=== PATIENT | male | born 1970 | race Caucasian/White ===

== ENCOUNTER → 2020-12-15 | Outpatient (CLI) | payer SELFPAY ==
[2020-12-15 15:46] LABS: Appearance,Urine Clear (Clear); Bilirubin,Urine Negative (Negative); Blood,Urine Negative (Negative); Color,Urine Yellow; Glucose,Urine (UA) Negative (Negative); Ketones,Urine Negative (Negative); Leukocyte Esterase,Urine Negative (Negative); Nitrite,Urine Negative (Negative); PH, Urine 5.5 (5.0-8.0); Protein,Urine Negative (Negative); Specific Gravity,Urine 1.022 (1.001-1.035)
[2020-12-15 23:02] LABS: Basophils # (A) 0.06 X 10*3/uL (0.00-0.10); Basophils % (A) 0.8 %; Eosinophils # (A) 0.37 X 10*3/uL (0.04-0.35); Eosinophils % (A) 4.9 %; HCT 46.9 % (39.6-50.0); HGB 14.4 g/dL (13.0-17.0); Lymphocytes # (A) 2.32 X 10*3/uL (0.90-5.00); Lymphocytes % (A) 30.5 %; MCH 25.2 pg (27.0-32.0); MCHC 30.7 g/dL (32.0-37.0); MCV 82.1 fL (80.0-97.0); Mean Platelet Volume 10.9 fL (9.5-12.2); Monocytes # (A) 0.54 X 10*3/uL (0.20-1.00); Monocytes % (A) 7.1 %; Neutrophils % (A) 56.4 %; Platelet Count 267 X 10*3/uL (140-440); RBC 5.71 X 10*6/uL (4.40-5.60); RDW 14.5 % (11.5-14.5); WBC 7.61 X 10*3/uL (4.50-10.00)
[2020-12-16 07:40] LABS: African American GFR (CKD) 82.4 (60.0-200.0); Albumin 4.7 g/dL (3.80-4.90); Albumin/Globulin Ratio 1.52 (1.60-3.17); Anion Gap 17.9 mmol/L (4.00-12.00); Calcium 9.8 mg/dL (8.7-10.3); Carbon Dioxide 14.1 mmol/L (21.6-31.8); Globulin 3.1 g/dL (1.6-3.3); Non-African American GFR(CKD) 71.1 (60.0-200.0); Total Bilirubin 0.3 mg/dL (0.3-1.2); Total Protein 7.8 g/dL (6.2-8.2)
== END | disposition home or self-care (01) ==
LOC: LABWHC1 14:23
PROVIDERS: ATTEND Family Medicine
DX: F11.20 Opioid dependence, uncomplicated (principal)
CPT/HCPCS: 36415; 80053; 81003; 85025; 86780; 87340

== ENCOUNTER 2024-01-27 17:08 | Observation (INO) | payer OTHER ==
[2024-01-27] MEDS ORDERED: ONDANSETRON 4 MG/2 ML VIAL IVP PRN (17:58)
[2024-01-27] MEDS ORDERED: NALOXONE 0.4 MG/ML 1 ML VIAL IV PRN (17:58)
[2024-01-27] MEDS ORDERED: VANCOMYCIN IV PER PHARMACY 1 EACH MISC MISCELLANE PRN (17:59)
--- NOTE | 2024-01-27 18:01 | ED ---
Extremity Problem HPI - General Chief complaint: Extremity Injury, Lower Stated complaint: Chemical blair on both legs Time Seen by Provider: 01/27/24 17:32 Source: patient, RN notes reviewed, old records reviewed Mode of arrival: ambulatory Limitations: no limitations - History of Present Illness Initial comments: This is a 53 male to the ER for evaluation today. Patient presents today for evaluation regards to severe lower extremity pain right lower extremity pain with significantly left lower extremity pain swelling redness history of chemical blair to the legs and currently feels like he has significant amount of pain and swelling and redness with warmth. At times feverish. Patient does get some chills, patient has severe left leg pain patient comes from [facility] where he is going through inpatient evaluation MD Complaint: extremity pain, extremity swelling, joint pain -: days(s) Location: left, lower extremity, bilateral lower extremity History of Same: Yes -: Yes arthralgia Radiation: none Severity scale (1-10): 4 Quality: stabbing Consistency: constant Improves with: nothing Worsens with: nothing Associated Symptoms: denies other symptoms - Related Data Home Medications Medication Instructions Recorded Confirmed Methadone [Dolophine] 70 mg PO DAILY 01/27/24 01/27/24 Mupirocin 2% Oint [Bactroban 2% 1 applic TOPICAL BID PRN 01/27/24 01/27/24 Oint] ondansetron HCL [Ondansetron HCl] 8 mg PO Q6H PRN 01/27/24 01/27/24 Allergies Allergy/AdvReac Type Severity Reaction Status Date / Time carbamazepine [From Tegretol] Allergy Anaphylaxis Verified 01/27/24 18:00 phenytoin [From Dilantin] Allergy Anaphylaxis Verified 01/27/24 18:00 Review of Systems ROS Statement: Those systems with pertinent positive or pertinent negative responses have been documented in the HPI. ROS Other: All systems not noted in ROS Statement are negative. Past Medical History Past Medical History: No Reported History History of Any Multi-Drug Resistant Organisms: None Reported Past Surgical History: Appendectomy Past Psychological History: No Psychological Hx Reported Smoking Status: Current every day smoker Past Alcohol Use History: Rare Past Drug Use History: Marijuana General Exam Limitations: no limitations General appearance: alert, in no apparent distress Head exam: Present: atraumatic, normocephalic, normal inspection Eye exam: Present: normal appearance, PERRL, EOMI. Absent: scleral icterus, conjunctival injection, periorbital swelling ENT exam: Present: normal exam, mucous membranes moist Neck exam: Present: normal inspection. Absent: tenderness, meningismus, lymphadenopathy Respiratory exam: Present: normal lung sounds bilaterally. Absent: respiratory distress, wheezes, rales, rhonchi, stridor Cardiovascular Exam: Present: regular rate, normal rhythm, normal heart sounds. Absent: systolic murmur, diastolic murmur, rubs, gallop, clicks GI/Abdominal exam: Present: soft, normal bowel sounds. Absent: distended, tenderness, guarding, rebound, rigid Extremities exam: Present: normal inspection, full ROM, normal capillary refill. Absent: tenderness, pedal edema, joint swelling, calf tenderness Back exam: Present: normal inspection Neurological exam: Present: alert, oriented X3, CN II-XII intact Psychiatric exam: Present: normal affect, normal mood Skin exam: Present: warm, dry, intact, normal color. Absent: rash Course Vital Signs 01/27/24 01/27/24 17:24 19:42 Temperature 98.0 F Pulse Rate 81 90 Respiratory 18 18 Rate Blood Pressure 99/64 152/104 O2 Sat by Pulse 98 98 Oximetry - Reevaluation(s) Reevaluation #1: 01/27/24 18:24 Medical records reviewed Reevaluation #2: 01/27/24 18:24 Patient symptoms unchanged Reevaluation #3: 01/27/24 18:24 Patient informed of results questions answered Reevaluation #4: Was pt. sent in by a medical professional or institution (, PA, PIPELINES SUPERVISOR, urgent care, hospital, or intermediate...) When possible be specific @ -no Did you speak to anyone other than the patient for history (EMS, parent, family, police, friend...)? What history was obtained from this source @ -no Did you review nursing and triage notes (agree or disagree)? Why? @ -agree Are old charts reviewed (outside hosp., previous admission, EMS record, old EKG, old radiological studies, urgent care reports/EKG's, intermediate records)? Report findings @ -yes Differential Diagnosis (chest pain, altered mental status, abdominal pain women, abdominal pain men, vaginal bleeding, weakness, fever, dyspnea, syncope, headache, dizziness, GI bleed, back pain, seizure, CVA, palpatations, mental health, musculoskeletal)? @ -prior EKG interpreted by me (3pts min.). @ -yes X-rays interpreted by me (1pt min.). @ -yes negative for acute disease CT interpreted by me (1pt min.). @ -no U/S interpreted by me (1pt. min.). @ -no What testing was considered but not performed or refused? (CT, X-rays, U/S, l abs)? Why? @ -none What meds were considered but not given or refused? Why? @ -none Did you discuss the management of the patient with other professionals (professionals i.e. Dr., PA, PIPELINES SUPERVISOR, lab, RT, psych nurse, director social service, cone trucker, teacher, air force senior officer, nurse case management)? Give summary @ -no Was smoking cessation discussed for >3mins.? @ -no Was critical care preformed (if so, how long)? @ -no Were there social determinants of health that impacted care today? How? (Homelessness, low income, unemployed, alcoholism, drug addiction, transportation, low edu. Level, literacy, decrease access to med. care, retirement, rehab)? @ -none Was there de-escalation of care discussed even if they declined (Discuss DNR or withdrawal of care, Hospice)? DNR status @ -no What co-morbidities impacted this encounter? (DM, HTN, Smoking, COPD, CAD, Cancer, CVA, ARF, Chemo, Hep., AIDS, mental health diagnosis, sleep apnea, morbid obesity)? @ -none Was patient admitted / discharged? Hospital course, mention meds given and route, prescriptions, significant lab abnormalities, going to OR and other pertinent info. @ - Undiagnosed new problem with uncertain prognosis? @ -no Drug Therapy requiring intensive monitoring for toxicity (Heparin, Nitro, Insulin, Cardizem)? @ -no Were any procedures done? @ -no Diagnosis/symptom? @ - Acute, or Chronic, or Acute on Chronic? @ -Acute Uncomplicated (without systemic symptoms) or Complicated (systemic symptoms)? @ -Complicated Side effects of treatment? @ -no Exacerbation, Progression, or Severe Exacerbation? @ -exacerbation Poses a threat to life or bodily function? How? (Chest pain, [place], [place], pneumonia, PE, COPD, DKA, ARF, appy, cholecystitis, CVA, Diverticulitis, Homicidal, Suicidal, threat to staff... and all critical care pts) @ -yes - Consultations Consultation #1: Spoke with isael who agrees to admit this patient Medical Decision Making - Medical Decision Making 53 male to ER for evaluation of severe leg pain severe leg swelling and left lower extremity cellulitis. Patient has significant left leg pain and will admit for IV antibiotics for lower extremity cellulitis - Lab Data Result diagrams: 01/27/24 17:16 01/27/24 17:16 Lab Results 01/27/24 01/27/24 01/27/24 Range/Units 17:16 17:16 17:16 WBC 10.3 (3.8-10.6) k/uL RBC 5.36 (4.30-5.90) m/uL Hgb 14.2 (13.0-17.5) gm/dL Hct 45.9 (39.0-53.0) % MCV 85.7 (80.0-100.0) fL MCH 26.4 (25.0-35.0) pg MCHC 30.8 L (31.0-37.0) g/dL RDW 13.5 (11.5-15.5) % Plt Count 208 (150-450) k/uL MPV 7.7 Neutrophils % 64 % Lymphocytes % 24 % Monocytes % 6 % Eosinophils % 4 % Basophils % 1 % Neutrophils # 6.6 (1.3-7.7) k/uL Lymphocytes # 2.5 (1.0-4.8) k/uL Monocytes # 0.6 (0-1.0) k/uL Eosinophils # 0.4 (0-0.7) k/uL Basophils # 0.1 (0-0.2) k/uL D-Dimer 0.24 (<0.60) mg/L FEU Sodium 139 (137-145) mmol/L Potassium 5.1 (3.5-5.1) mmol/L Chloride 105 (98-107) mmol/L Carbon Dioxide 28 (22-30) mmol/L Anion Gap 6 mmol/L BUN 16 (9-20) mg/dL Creatinine 0.79 (0.66-1.25) mg/dL Est GFR (CKD-EPI)AfAm >90 (>60 ml/min/1.73 sqM) Est GFR (CKD-EPI)NonAf >90 (>60 ml/min/1.73 sqM) Glucose 86 (74-99) mg/dL Plasma Lactic Acid Davi (0.7-2.0) mmol/L Calcium 9.0 (8.4-10.2) mg/dL Phosphorus 4.1 (2.5-4.5) mg/dL Magnesium 2.1 (1.6-2.3) mg/dL Total Bilirubin 0.4 (0.2-1.3) mg/dL AST 49 (17-59) U/L ALT 90 H (4-49) U/L Alkaline Phosphatase 79 (38-126) U/L C-Reactive Protein 0.9 (<1.0) mg/dL NT-Pro-B Natriuret Pep 333 pg/mL Total Protein 7.3 (6.3-8.2) g/dL Albumin 4.0 (3.5-5.0) g/dL 01/27/24 Range/Units 17:16 WBC (3.8-10.6) k/uL RBC (4.30-5.90) m/uL Hgb (13.0-17.5) gm/dL Hct (39.0-53.0) % MCV (80.0-100.0) fL MCH (25.0-35.0) pg MCHC (31.0-37.0) g/dL RDW (11.5-15.5) % Plt Count (150-450) k/uL MPV Neutrophils % % Lymphocytes % % Monocytes % % Eosinophils % % Basophils % % Neutrophils # (1.3-7.7) k/uL Lymphocytes # (1.0-4.8) k/uL Monocytes # (0-1.0) k/uL Eosinophils # (0-0.7) k/uL Basophils # (0-0.2) k/uL D-Dimer (<0.60) mg/L FEU Sodium (137-145) mmol/L Potassium (3.5-5.1) mmol/L Chloride (98-107) mmol/L Carbon Dioxide (22-30) mmol/L Anion Gap mmol/L BUN (9-20) mg/dL Creatinine (0.66-1.25) mg/dL Est GFR (CKD-EPI)AfAm (>60 ml/min/1.73 sqM) Est GFR (CKD-EPI)NonAf (>60 ml/min/1.73 sqM) Glucose (74-99) mg/dL Plasma Lactic Acid Davi 1.2 (0.7-2.0) mmol/L Calcium (8.4-10.2) mg/dL Phosphorus (2.5-4.5) mg/dL Magnesium (1.6-2.3) mg/dL Total Bilirubin (0.2-1.3) mg/dL AST (17-59) U/L ALT (4-49) U/L Alkaline Phosphatase (38-126) U/L C-Reactive Protein (<1.0) mg/dL NT-Pro-B Natriuret Pep pg/mL Total Protein (6.3-8.2) g/dL Albumin (3.5-5.0) g/dL Disposition Clinical Impression: Left leg cellulitis, Leg pain Disposition: ADMITTED IP TO THIS HOSP Condition: Good Is patient prescribed a controlled substance at d/c from ED?: No Time of Disposition: 21:00
[2024-01-27] MEDS: SODIUM CHLORIDE 0.9% 1,000 ML IV STA (19:30)
[2024-01-27 19:33] LABS: Basophils # (A) 0.1 k/uL (0-0.2); Basophils % (A) 1 %; Eosinophils # (A) 0.4 k/uL (0-0.7); Eosinophils % (A) 4 %; HCT 45.9 % (39.0-53.0); HGB 14.2 gm/dL (13.0-17.5); Lymphocytes # (A) 2.5 k/uL (1.0-4.8); Lymphocytes % (A) 24 %; MCH 26.4 pg (25.0-35.0); MCHC 30.8 g/dL (31.0-37.0); MCV 85.7 fL (80.0-100.0); Mean Platelet Volume 7.7; Monocytes # (A) 0.6 k/uL (0-1.0); Monocytes % (A) 6 %; Neutrophils # (A) 6.6 k/uL (1.3-7.7); Neutrophils % (A) 64 %; Platelet Count 208 k/uL (150-450); RBC 5.36 m/uL (4.30-5.90); RDW 13.5 % (11.5-15.5); WBC 10.3 k/uL (3.8-10.6)
[2024-01-27] MEDS: LORazepam 2 MG/ML INJ IV STA (19:36)
[2024-01-27] MEDS: SODIUM CHLORIDE 0.9% 500 ML 500 ML IV STA (19:57)
[2024-01-27] MEDS: ACETAMINOPHEN IV (For NPO) 1,000 MG in EMPTY BAG 1 BAG IVPB STA (19:59)
[2024-01-27] MEDS: VANCOMYCIN 1,500 MG in SODIUM CHLORIDE 0.9% 500 ML 500 ML IVPB ONE (20:39)
[2024-01-27 20:49] LABS: ALT 90 U/L (4-49); AST 49 U/L (17-59); African American GFR (CKD) >90 (>60 ml/min/1.73 sqM); Alkaline Phosphatase 79 U/L (38-126); Anion Gap 6 mmol/L; Blood Urea Nitrogen 16 mg/dL (9-20); C Reactive Protein 0.9 mg/dL (<1.0); Carbon Dioxide 28 mmol/L (22-30); Chloride 105 mmol/L (98-107); Glucose 86 mg/dL (74-99); Magnesium 2.1 mg/dL (1.6-2.3); Non-African American GFR(CKD) >90 (>60 ml/min/1.73 sqM); Phosphorus 4.1 mg/dL (2.5-4.5); Potassium 5.1 mmol/L (3.5-5.1); Sodium 139 mmol/L (137-145); Total Bilirubin 0.4 mg/dL (0.2-1.3); Total Protein 7.3 g/dL (6.3-8.2)
[2024-01-27 20:54] LABS: NT-Pro-B-Type Natriuretic Pept 333 pg/mL
[2024-01-27] MEDS: KETOROLAC 15 MG/ML 1 ML VIAL IVP PRN (21:58)
--- NOTE | 2024-01-27 23:23 | P.HPIM ---
History of Present Illness H&P Date: 01/27/24 Patient is a 53-year-old male with a PMH of opiate abuse who presents to the emergency room with complaints of left lower extremity pain and redness. The patient reports that his symptoms started 4 days ago and have gradually worsened. Reports being exposed to white phosphorus chemical blair on his legs bilaterally while working as a [employer] [facility] [employer] 3 years ago. He reports having completed a 6-month contract there. He is currently undergoing an opiate detox at [facility]. Reports 7 out of 10 pain in the left lower extremity and 1 out of 10 in the right lower extremity. Denies experiencing fever, chills, chest pain, shortness of breath, nausea, vomiting, abdominal pain, diarrhea. Patient does report a history of 2 bouts of cellulitis of his legs over the past 3 years and having received vancomycin which did resolve the prior infections. Laboratory evaluation from the emergency room revealed a WBC count of 10.3, hemoglobin 14.2, and platelet count 2 8 with sodium 139, potassium 5.1, and proBNP 333. ED documentation reviewed and case discussed with ED provider. Review of systems: Pertinent positives and negatives as discussed in HPI, a complete review of systems was performed and all other systems are negative. Physical examination: Vital signs reviewed General: non toxic, no distress, appears at stated age, normal weight Derm: Left lower extremity area of erythema with warmth and tenderness without crepitus or skin ulcerations noted, warm, minimal right medial lower extremity aspect erythema Head: atraumatic, normocephalic, symmetric Eyes: EOMI, no lid lag, anicteric sclera, pupils equal round reactive to light ENT: Nose and ears atraumatic Neck: No cervical lymphadenopathy, trachea midline, supple Mouth: no lip lesion, mucus membranes moist Cardiovascular: S1S2 reg, no murmur, positive dorsalis pedis pulse bilateral, no edema Lungs: CTA bilateral, no rhonchi, no rales, no accessory muscle use Abdominal: soft, nontender to palpation, no guarding Ext: muscle strength 5 out of 5 in all 4 extremities grossly, no gross muscle atrophy, no contractures, Neuro: CN II-XI grossly intact, no gross focal neuro deficits Psych: Alert, oriented, appropriate affect Assessment: Left lower extremity cellulitis Imaging: None performed Data Review: Laboratory evaluation from the emergency room revealed a WBC count of 10.3, hemoglobin 14.2, and platelet count 2 8 with sodium 139, potassium 5.1, and proBNP 333. Plan: Continue patient on ceftriaxone and vancomycin for now Continue IV fluids with normal saline 130 cc/h Pain control with Toradol Follow-up blood cultures Brayan the area to monitor progress DVT prophylaxis: Lovenox subcu The patient is admitted with an anticipated greater than 2 midnight stay for evaluation of cellulitis CODE STATUS: Full Code Discussed with: Patient Anticipated discharge place: [facility] Past Medical History Past Medical History: No Reported History History of Any Multi-Drug Resistant Organisms: None Reported Past Surgical History: Appendectomy Past Psychological History: No Psychological Hx Reported Smoking Status: Current every day smoker Past Alcohol Use History: Rare Past Drug Use History: Marijuana Medications and Allergies Home Medications Medication Instructions Recorded Confirmed Type Methadone [Dolophine] 70 mg PO DAILY 01/27/24 01/27/24 History Mupirocin 2% Oint [Bactroban 2% 1 applic TOPICAL BID PRN 01/27/24 01/27/24 History Oint] ondansetron HCL [Ondansetron HCl] 8 mg PO Q6H PRN 01/27/24 01/27/24 History Allergies Allergy/AdvReac Type Severity Reaction Status Date / Time carbamazepine [From Tegretol] Allergy Anaphylaxis Verified 01/27/24 18:00 phenytoin [From Dilantin] Allergy Anaphylaxis Verified 01/27/24 18:00 Physical Exam Vitals: Vital Signs Temp Pulse Pulse Resp BP BP Pulse Ox 01/27/24 22:59 97.8 F 83 16 141/91 97 01/27/24 22:20 72 18 128/85 100 01/27/24 21:43 88 18 128/80 99 01/27/24 19:42 90 18 152/104 98 01/27/24 17:24 98.0 F 81 18 99/64 98 Intake and Output 01/27/24 01/27/24 01/28/24 14:59 22:59 06:59 Other: Weight 97.522 kg Results CBC & Chem 7: 01/27/24 17:16 01/27/24 17:16 Labs: Abnormal Lab Results - Last 24 Hours (Table) 01/27/24 01/27/24 Range/Units 17:16 17:16 MCHC 30.8 L (31.0-37.0) g/dL ALT 90 H (4-49) U/L
[2024-01-28] MEDS: ACETAMINOPHEN TAB 325 MG TAB PO PRN (01:08)
[2024-01-28] MEDS: VANCOMYCIN 1,500 MG in SODIUM CHLORIDE 0.9% 500 ML 500 ML IVPB SCH (05:23)
[2024-01-28 07:41] LABS: African American GFR (CKD) >90 (>60 ml/min/1.73 sqM); Non-African American GFR(CKD) >90 (>60 ml/min/1.73 sqM)
[2024-01-28] MEDS: ENOXAPARIN 40 MG/0.4 ML SYRINGE SQ SCH (09:08)
[2024-01-28] MEDS: METHADONE 10 MG TAB PO SCH (10:37)
--- NOTE | 2024-01-28 14:42 | P.DS ---
Providers Date of admission: 01/27/24 18:00 Expected date of discharge: 01/28/24 Attending physician: Mckenna Callaway DO Primary care physician: Stated None Hospital Course: Discharge Diagnosis: Left lower extremity cellulitis Hospital Course: 53-year-old male with a PMH of opiate abuse who presents to the emergency room with complaints of left lower extremity pain and redness. Laboratory evaluation from the emergency room revealed a WBC count of 10.3, hemoglobin 14.2, and platelet count 2 8 with sodium 139, potassium 5.1, and proBNP 333. No features of severe infection, patient claims that his symptoms have been improving. Started on oral antibiotics. Patient can return back to [facility]. Follow- up with PCP outpatient. Patient seen and examined at bedside. Vital signs reviewed and stable. General: non toxic, no distress, appears at stated age, normal weight Derm: Left lower extremity area of erythema with warmth and tenderness without crepitus or skin ulcerations noted, warm, minimal right medial lower extremity aspect erythema Head: atraumatic, normocephalic, symmetric Eyes: EOMI, no lid lag, anicteric sclera, pupils equal round reactive to light ENT: Nose and ears atraumatic Neck: No cervical lymphadenopathy, trachea midline, supple Mouth: no lip lesion, mucus membranes moist Cardiovascular: S1S2 reg, no murmur, positive dorsalis pedis pulse bilateral, no edema Lungs: CTA bilateral, no rhonchi, no rales, no accessory muscle use Abdominal: soft, nontender to palpation, no guarding Ext: muscle strength 5 out of 5 in all 4 extremities grossly, no gross muscle atrophy, no contractures, Neuro: CN II-XI grossly intact, no gross focal neuro deficits Psych: Alert, oriented, appropriate affect A total of 33 minutes of time were spent preparing this complex discharge summary. Patient was discharged on 01/28/2024 at 1418. Patient Condition at Discharge: Stable Plan - Discharge Summary New Discharge Prescriptions: New Cephalexin [Keflex] 500 mg PO Q6HR 10 Days #40 cap Continue Methadone [Dolophine] 70 mg PO DAILY ondansetron HCL [Zofran] 8 mg PO Q6H PRN PRN Reason: Nausea And Vomiting Mupirocin 2% Oint [Bactroban 2% Oint] 1 applic TOPICAL BID PRN PRN Reason: LLE SKIN IR Discharge Medication List Methadone [Dolophine] 70 mg PO DAILY 01/27/24 [History] Mupirocin 2% Oint [Bactroban 2% Oint] 1 applic TOPICAL BID PRN 01/27/24 [History] ondansetron HCL [Zofran] 8 mg PO Q6H PRN 01/27/24 [History] Cephalexin [Keflex] 500 mg PO Q6HR 10 Days #40 cap 01/28/24 [Rx] Follow up Appointment(s)/Referral(s): None,Stated [Primary Care Provider] - 1-2 days Patient Instructions/Handouts: Cellulitis (GEN) Activity/Diet/Wound Care/Special Instructions: Please see your PCP. Discharge Disposition: OTHER INSTITUTION NOT DEFINED
[2024-01-28 15:19] VITALS: BP 120/83; PULSE 91; RESP 17; TEMP 98.1
[2024-01-29] MEDS ORDERED: VANCOMYCIN TROUGH DUE 1 EACH MISC MISCELLANE ONE (04:00)
== END 2024-01-28 15:55 | disposition home or self-care (01) ==
LOC: EC 17:08 → 6NMEDSUR 18:00
PROVIDERS: ADMIT Internal Medicine; ATTEND Internal Medicine
DX: T24.231A Burn of second degree of right lower leg, initial encounter (principal); L03.116 Cellulitis of left lower limb; F17.200 Nicotine dependence, unspecified, uncomplicated; T24.001A Burn of unspecified degree of unspecified site of right lower limb, except ankle and foot, initial encounter; T24.002A Burn of unspecified degree of unspecified site of left lower limb, except ankle and foot, initial encounter
CPT/HCPCS: 96361 ×2; 96365; 96366 ×2; 96367; 96372; 96375; 99285; 85379; 83880; 80053; 82565; 83605; 83735; 84100; 85025; 86140; 87040; G0378 ×2; J3370 ×2; J2060; J0696 ×2; J1650; S0109; J0131; J1885 ×2